=== PATIENT | female | born 1960 | race Caucasian/White ===

== ENCOUNTER 2017-02-17 11:46 | Outpatient (CLI) | payer OTHER ==
[2017-02-17 12:34] LABS: #Basophils 0.1 thou/uL (0.0-0.2); #Eosinphils 0.1 thou/uL (0.0-0.7); #Lymphocytes 1.8 thou/uL (1.20-3.40); #Monocytes 0.4 thou/uL (0.11-0.59); #Neutrophils 2.4 thou/uL (1.40-6.50); %Basophils 1.1 % (0.0-1.0); %Eosinophils 1.6 % (0.0-10.0); %Lymphocytes 38.6 % (21.0-51.0); %Monocytes 8.3 % (0.0-10.0); %Neutrophils 50.4 % (42.0-75.0); Hemoglobin 11.9 g/dL (12.0-16.0); Mean Corpuscular HGB CONC 31.6 g/dL (32.0-36.0); Mean Corpuscular Hemoglobin 29.2 pg (27.0-31.0); Mean Corpuscular Volume 92.4 fl (81.0-99.0); Mean Platelet Volume 7.4 fL (7.4-10.4); Platelet Count 317 thou/uL (130-400); RBC Distribution Width 13.4 % (11.5-14.5); Red Blood Cell (RBC) Count 4.07 mill/uL (4.20-5.40); White Blood Cell (WBC) Count 4.8 thou/uL (4.8-10.8)
[2017-02-17 12:55] LABS: ALT (SGPT) 12 U/L (0-55); AST (SGOT) 13 U/L (5-34); Albumin 4.1 g/dL (3.5-5.0); Alkaline Phosphatase 108 U/L (40-150); Anion Gap 15 mmol/L (10-20); BUN (Urea Nitrogen) 11 mg/dL (9.8-20.1); Bilirubin, Direct 0.3 mg/dL (0.1-0.3); Bilirubin, Total 0.9 mg/dL (0.2-1.2); Calc. Creatinine Clearance 0 mL/min (70-130); Calcium 9.3 mg/dL (7.8-10.44); Carbon Dioxide 27 mmol/L (22-29); Cardiac Risk 2.7 (Less than 4.5); Chloride 108 mmol/L (98-107); Cholesterol 186 mg/dL (< 200 Desired); Estimated GFR-MDRD 84; Glucose 84 mg/dL (70-105); HDL Cholesterol 69 mg/dL (>60 Neg Risk); LDL Cholesterol, Calculated 104 mg/dL; Potassium 4.5 mmol/L (3.5-5.1); Sodium 145 mmol/L (136-145); Triglycerides 64 mg/dL (Less than 150)
[2017-02-17 13:28] LABS: Hemoglobin A1c 5.7 % (4.0-6.0)
== END 2017-02-17 11:47 | disposition home or self-care (01) ==
LOC: NAVSJIPCSP 11:46
PROVIDERS: ATTEND Nurse Practitioner Family
DX: Z51.81 Encounter for therapeutic drug level monitoring (principal); Z79.899 Other long term (current) drug therapy
CPT/HCPCS: 36415; 80048; 80061; 80076; 83036; 84443; 85025

== ENCOUNTER 2020-11-13 16:33 | Outpatient (CLI) | payer OTHER ==
--- NOTE | 2020-11-13 18:13 | RAD ---
TWO VIEWS LEFT HIP: Date: 11-13-2020 PROVIDED CLINICAL HISTORY: Pain FINDINGS: There is no evidence for fracture or other acute osseous abnormality. Alignment appears anatomic. Belén nt spaces appear preserved. IMPRESSION: No evidence for an acute osseous abnormality or significant arthropathy. POS: [facility]
--- NOTE | 2020-11-13 18:15 | RAD ---
TWO VIEWS RIGHT HIP: Date: 11-13-2020 Comparison: None History: Pain, no history of injury. FINDINGS: There is moderate degenerative change involving the right hip with superior joint space narrowing and subchondral sclerosis and lateral acetabular osteophyte formation. There is no acute fracture or rogerio dence of dislocation. IMPRESSION: Moderate degenerative change involving the right hip. POS: [facility]
== END 2020-11-13 16:34 | disposition home or self-care (01) ==
LOC: NAV RAD 16:33
PROVIDERS: ATTEND Family Medicine
DX: M54.30 Sciatica, unspecified side (principal); M17.11 Unilateral primary osteoarthritis, right knee